=== PATIENT | female | born 1960 | race Caucasian/White ===

== ENCOUNTER 2016-10-30 19:53 | Emergency (ER) | payer SELFPAY ==
[~2016-10-30] VITALS: Ht 167.6 cm; Wt 68.2 kg
[2016-10-30] MEDS ORDERED: BECL8.7A7 IH (20:09)
[2016-10-30] MEDS ORDERED: DIAZ10 PO (20:09)
[2016-10-30] MEDS ORDERED: LORA2TAB2 PO (20:09)
[2016-10-30] MEDS ORDERED: ALBU8.5H8 IH (20:09)
[2016-10-30] MEDS ORDERED: ALBU8HFA IH (20:09)
[2016-10-30] MEDS ORDERED: DIVA500T35 PO (20:09)
[2016-10-30] MEDS ORDERED: QUET200T PO (20:09)
[2016-10-30] MEDS ORDERED: QUEtiapine FUMARATE 100 MG TABLET PO ONE (22:45)
[2016-10-30] MEDS ORDERED: ALBUTEROL SULFATE HFA 90 MCG/PUFF 8 GM INHALER IH ONE (22:45)
[2016-10-30] MEDS ORDERED: LORazepam 2 MG TABLET PO ONE (22:45)
[2016-10-30 22:56] VITALS: BP 130/85
== END 2016-10-30 22:59 | disposition home or self-care (01) ==
LOC: EMS 19:57
DX: F43.22 Adjustment disorder with anxiety (principal); J44.1 Chronic obstructive pulmonary disease with (acute) exacerbation; F32.9 Major depressive disorder, single episode, unspecified; J45.909 Unspecified asthma, uncomplicated; I10 Essential (primary) hypertension; F17.210 Nicotine dependence, cigarettes, uncomplicated; Z59.0 Homelessness; Z88.5 Allergy status to narcotic agent; Z88.6 Allergy status to analgesic agent
CPT/HCPCS: 94640; 99283; 99406; J3535

== ENCOUNTER 2016-11-03 16:05 | Emergency (ER) | payer MEDICAID ==
[~2016-11-03] VITALS: Ht 165.1 cm; Wt 63.6 kg
[~2016-11-03 16:05] MED LIST: ALBU8.5H8 IH; ALBU8HFA IH; BECL8.7A7 IH; DIAZ10 PO; DIVA500T35 PO; LORA2TAB2 PO; QUET200T PO
[2016-11-03 16:58] VITALS: BP 133/90
[2016-11-03] MEDS ORDERED: ALBUTEROL SULFATE HFA 90 MCG/PUFF 8 GM INHALER IH ONE (17:45)
== END 2016-11-03 18:07 | disposition home or self-care (01) ==
LOC: EMS 16:06
DX: J44.9 Chronic obstructive pulmonary disease, unspecified (principal); F41.9 Anxiety disorder, unspecified; I10 Essential (primary) hypertension; F17.210 Nicotine dependence, cigarettes, uncomplicated; Z88.8 Allergy status to other drugs, medicaments and biological substances; Z88.6 Allergy status to analgesic agent
CPT/HCPCS: 94640; 99283; 99406; J3535

== ENCOUNTER 2016-11-23 10:28 | Emergency (ER) | payer MEDICAID ==
[~2016-11-23] VITALS: Ht 162.6 cm; Wt 60.0 kg
[2016-11-23] MEDS ORDERED: MethylPREDNISolone SOD SUCC 125 MG/2 ML VIAL IM ONE (11:30)
[2016-11-23] MEDS ORDERED: ALBUTEROL SULFATE HFA 90 MCG/PUFF 8 GM INHALER IH ONE (12:00)
[2016-11-23 12:06] VITALS: BP 138/92
== END 2016-11-23 12:08 | disposition home or self-care (01) ==
LOC: EMS 10:30
DX: J45.901 Unspecified asthma with (acute) exacerbation (principal); J44.1 Chronic obstructive pulmonary disease with (acute) exacerbation; I10 Essential (primary) hypertension; F17.210 Nicotine dependence, cigarettes, uncomplicated; Z88.6 Allergy status to analgesic agent; Z88.5 Allergy status to narcotic agent
CPT/HCPCS: 94640; 96372; 99283; 99406; J2930; J3535

== ENCOUNTER 2017-01-21 17:45 | Inpatient (IN) | payer MEDICAID, OTHER ==
[~2017-01-21] VITALS: Ht 162.6 cm; Wt 61.2 kg
[2017-01-21 18:27] LABS: GLUCOSE,POINT OF CARE 103 MG/DL (70-110)
[2017-01-21 19:08] LABS: BASOPHILS % (AUTO) 0.8 % (0.0-2.0); HEMATOCRIT 42.6 % (36-46); HEMOGLOBIN 14.9 g/dL (12.0-16.0); LYMPHOCYTES # (AUTO) 2.2 K/uL (1.0-4.8); LYMPHOCYTES % (AUTO) 36.6 % (22.0-44.0); MEAN CORPUSCULAR HEMOGLOBIN 33.4 pg (26.0-34.0); MEAN CORPUSCULAR VOLUME 96 fL (80-100); MONOCYTES # (AUTO) 0.3 K/uL (0.1-1.0); MONOCYTES % (AUTO) 5.9 % (2.0-9.0); NEUTROPHILS # (AUTO) 2.4 K/uL (1.8-7.7); NEUTROPHILS % (AUTO) 41.4 % (40.0-70.0); PLATELET COUNT (AUTO) 297 K/uL (150-450); RED BLOOD CELL COUNT(AUTO) 4.46 MIL/uL (4.00-5.20); RED CELL DISTRIBUTION WIDTH 12.9 % (11.5-14.5); WHITE BLOOD COUNT (AUTO) 5.9 K/uL (4.5-11.0)
[2017-01-21 19:11] LABS: EOSINOPHILS % (AUTO) 15.3 % (1.0-6.0)
[2017-01-21 19:20] LABS: ANION GAP 9 mmol/L (8-16); CALCIUM, TOTAL 9.3 mg/dL (8.8-10.5); CARBON DIOXIDE 30 mmol/L (22-29); CHLORIDE 102 mmol/L (98-107); CREATININE 0.78 mg/dL (0.60-1.30); GLOMERULAR FILTR. RATE CALC > 60 mL/min (>60); POTASSIUM 3.9 mmol/L (3.5-5.1); SODIUM SERUM 141 mmol/L (136-145); UREA NITROGEN, BLOOD 8 mg/dL (7-18)
[2017-01-21 19:26] LABS: ALANINE AMINOTRANSFERASE 24 U/L (12-78); ALBUMIN 3.8 g/dL (3.4-5.0); ASPARTATE AMINOTRANSFERASE 21 U/L (15-37); BILIRUBIN,TOTAL 0.2 mg/dL (0.1-1.0); TOTAL PROTEIN, SERUM 7.2 g/dL (6.4-8.2)
[2017-01-21] MEDS ORDERED: ALBUTEROL SULFATE HFA 90 MCG/PUFF 8 GM INHALER IH ONE (20:15)
[2017-01-21] MEDS ORDERED: HALOPERIDOL 5 MG TABLET PO PRN (21:30)
[2017-01-21] MEDS ORDERED: CYANOCOBALAMIN 500 MCG TABLET PO ONE (21:30)
[2017-01-21] MEDS ORDERED: ZOLPIDEM TARTRATE 10 MG TABLET PO PRN (21:30)
[2017-01-21] MEDS ORDERED: ACETAMINOPHEN 500 MG TABLET PO ONE (22:00)
[2017-01-21] MEDS: LORazepam 2 MG TABLET PO PRN (22:10)
[2017-01-22] VITALS (11 sets, daily range): BP systolic 98–143; BP diastolic 62–99
[2017-01-22 07:49] LABS: CHOL/HDL RATIO 3.3 (3.9-5.7)
[2017-01-22] MEDS: FOLIC ACID 1 MG TABLET PO SCH (08:33)
[2017-01-22] MEDS: THIAMINE HCL 100 MG TABLET PO SCH ×2 (08:34→16:15)
[2017-01-22] MEDS: ALBUTEROL SULFATE HFA 90 MCG/PUFF 8 GM INHALER IH SCH ×3 (08:35→16:16)
[2017-01-22] MEDS: DIVALPROEX SODIUM 500 MG DR TABLET PO SCH ×2 (08:45→16:15)
[2017-01-22] MEDS: BECLOMETHASONE DIPR 80 MCG/PUFF 8.7 GM INHALER IH SCH ×2 (09:00→16:16)
[2017-01-22] MEDS: NICOTINE 14 MG/24 HOUR PATCH TD SCH (10:13)
[2017-01-22] MEDS ORDERED: ACETAMINOPHEN 325 MG TABLET PO PRN (12:15)
[2017-01-22] MEDS: LORazepam 2 MG TABLET PO PRN ×2 (12:56→16:58)
[2017-01-22] MEDS: QUEtiapine FUMARATE 200 MG TABLET PO SCH (20:29)
[2017-01-22] MEDS ORDERED: QUEtiapine FUMARATE 200 MG TABLET PO SCH (21:00)
[2017-01-23] VITALS: BP 112/69
[2017-01-23] MEDS: ALBUTEROL SULFATE HFA 90 MCG/PUFF 8 GM INHALER IH PRN ×2 (03:39→14:54)
[2017-01-23 04:00] VITALS: BP 116/71
[2017-01-23 08:00] VITALS: BP 100/65
[2017-01-23 08:22] LABS: BASOPHILS % (AUTO) 1.3 % (0.0-2.0); EOSINOPHILS % (AUTO) 10.6 % (1.0-6.0); HEMATOCRIT 42.4 % (36-46); HEMOGLOBIN 14.6 g/dL (12.0-16.0); LYMPHOCYTES # (AUTO) 1.8 K/uL (1.0-4.8); LYMPHOCYTES % (AUTO) 31.4 % (22.0-44.0); MEAN CORPUSCULAR HEMOGLOBIN 33.4 pg (26.0-34.0); MEAN CORPUSCULAR HGB CONC 34.4 G/dL (31.0-37.0); MEAN CORPUSCULAR VOLUME 97 fL (80-100); MONOCYTES # (AUTO) 0.5 K/uL (0.1-1.0); MONOCYTES % (AUTO) 7.9 % (2.0-9.0); NEUTROPHILS # (AUTO) 2.9 K/uL (1.8-7.7); NEUTROPHILS % (AUTO) 48.8 % (40.0-70.0); PLATELET COUNT (AUTO) 268 K/uL (150-450); RED BLOOD CELL COUNT(AUTO) 4.37 MIL/uL (4.00-5.20); RED CELL DISTRIBUTION WIDTH 12.7 % (11.5-14.5); WHITE BLOOD COUNT (AUTO) 5.9 K/uL (4.5-11.0)
[2017-01-23 08:26] LABS: HEMOGLOBIN A1C 5.6 % (4.5-6.2)
[2017-01-23 08:30] VITALS: BP 100/65
[2017-01-23 08:41] LABS: THYROID STIMULATING HORMONE 0.88 uIU/mL (0.36-3.74)
[2017-01-23] MEDS: BECLOMETHASONE DIPR 80 MCG/PUFF 8.7 GM INHALER IH SCH ×2 (08:41→16:17)
[2017-01-23] MEDS: THIAMINE HCL 100 MG TABLET PO SCH ×2 (08:42→16:18)
[2017-01-23] MEDS: DIVALPROEX SODIUM 500 MG DR TABLET PO SCH ×2 (08:42→16:18)
[2017-01-23] MEDS: ALBUTEROL SULFATE HFA 90 MCG/PUFF 8 GM INHALER IH SCH ×3 (08:42→17:15)
[2017-01-23] MEDS: NICOTINE 14 MG/24 HOUR PATCH TD SCH (08:42)
[2017-01-23] MEDS: FOLIC ACID 1 MG TABLET PO SCH (08:42)
[2017-01-23] MEDS: LORazepam 2 MG TABLET PO PRN ×2 (08:48→16:21)
[2017-01-23 08:54] LABS: ALANINE AMINOTRANSFERASE 22 U/L (12-78); ALBUMIN 3.4 g/dL (3.4-5.0); ANION GAP 8 mmol/L (8-16); ASPARTATE AMINOTRANSFERASE 18 U/L (15-37); BILIRUBIN,TOTAL 0.3 mg/dL (0.1-1.0); CALCIUM, TOTAL 8.8 mg/dL (8.8-10.5); CARBON DIOXIDE 28 mmol/L (22-29); CHLORIDE 101 mmol/L (98-107); CHOL/HDL RATIO 2.9 (3.9-5.7); CREATININE 0.79 mg/dL (0.60-1.30); GLOMERULAR FILTR. RATE CALC > 60 mL/min (>60); POTASSIUM 3.8 mmol/L (3.5-5.1); SODIUM SERUM 137 mmol/L (136-145); TOTAL PROTEIN, SERUM 6.9 g/dL (6.4-8.2); UREA NITROGEN, BLOOD 14 mg/dL (7-18)
[2017-01-23 16:33] VITALS: BP 140/91
[2017-01-23 18:27] VITALS: BP 105/64
[2017-01-23] MEDS: QUEtiapine FUMARATE 200 MG TABLET PO SCH (20:16)
[2017-01-24 05:30] VITALS: BP 124/73
[2017-01-24] MEDS ORDERED: PNEUMOCOCCAL VACCINE POLYVALENT 0.5 ML VIAL [PPSV23] IM ONE (06:00)
[2017-01-24] MEDS: ALBUTEROL SULFATE HFA 90 MCG/PUFF 8 GM INHALER IH PRN (07:10)
[2017-01-24 08:42] VITALS: BP 113/74
[2017-01-24] MEDS: FOLIC ACID 1 MG TABLET PO SCH (08:48)
[2017-01-24] MEDS: NICOTINE 14 MG/24 HOUR PATCH TD SCH (08:48)
[2017-01-24] MEDS: DIVALPROEX SODIUM 500 MG DR TABLET PO SCH (08:49)
[2017-01-24] MEDS: THIAMINE HCL 100 MG TABLET PO SCH (08:49)
[2017-01-24] MEDS: ALBUTEROL SULFATE HFA 90 MCG/PUFF 8 GM INHALER IH SCH ×2 (08:49→13:38)
[2017-01-24] MEDS: BECLOMETHASONE DIPR 80 MCG/PUFF 8.7 GM INHALER IH SCH (08:49)
[2017-01-24 09:37] VITALS: BP 113/74
[2017-01-24] MEDS ORDERED: ALBU8HFA4 IH (14:47)
== END 2017-01-24 15:45 | disposition home or self-care (01) | DRG 753 ==
LOC: EMS 17:47 → B3A 21:30
DX: F31.2 Bipolar disorder, current episode manic severe with psychotic features (principal); I10 Essential (primary) hypertension; J45.909 Unspecified asthma, uncomplicated; F10.229 Alcohol dependence with intoxication, unspecified; F41.9 Anxiety disorder, unspecified; F17.210 Nicotine dependence, cigarettes, uncomplicated; J44.9 Chronic obstructive pulmonary disease, unspecified; E78.5 Hyperlipidemia, unspecified; Z28.21 Immunization not carried out because of patient refusal; Z79.899 Other long term (current) drug therapy; Z98.51 Tubal ligation status; Z88.8 Allergy status to other drugs, medicaments and biological substances; Z87.01 Personal history of pneumonia (recurrent); Z71.41 Alcohol abuse counseling and surveillance of alcoholic
CPT/HCPCS: 82962; 83036; 84436; 84439; 84443; 99285; G0480; J3535

== ENCOUNTER 2017-03-07 13:10 | Emergency (ER) | payer MEDICAID ==
[~2017-03-07] VITALS: Ht 167.6 cm; Wt 63.6 kg
[~2017-03-07 13:10] MED LIST changes: -ALBU8.5H8 IH; -ALBU8HFA IH; +ALBU8HFA4 IH; -DIAZ10 PO; -LORA2TAB2 PO
[2017-03-07 13:17] VITALS: BP 154/92
== END 2017-03-07 14:59 | disposition left against medical advice (07) ==
LOC: EMS 13:11
DX: R07.9 Chest pain, unspecified (principal); I10 Essential (primary) hypertension; F17.210 Nicotine dependence, cigarettes, uncomplicated; Z53.21 Procedure and treatment not carried out due to patient leaving prior to being seen by health care provider
CPT/HCPCS: 93005

== ENCOUNTER 2017-05-02 12:52 | Emergency (ER) | payer MEDICAID ==
[~2017-05-02] VITALS: Ht 165.1 cm; Wt 59.1 kg
[~2017-05-02 12:52] MED LIST changes: -DIVA500T35 PO; -QUET200T PO
[2017-05-02 13:01] VITALS: BP 150/80
== END 2017-05-02 14:54 | disposition left against medical advice (07) ==
LOC: EMS 12:54
DX: Z53.21 Procedure and treatment not carried out due to patient leaving prior to being seen by health care provider (principal)

== ENCOUNTER 2021-05-13 12:52 | Emergency (ER) | payer MEDICAID ==
[~2021-05-13] VITALS: Ht 165.1 cm; Wt 67.7 kg
[2021-05-13 13:12] LABS: BASOPHILS % (AUTO) 0.9 % (0.0-2.0); EOSINOPHILS % (AUTO) 4.5 % (1.0-6.0); HEMATOCRIT 38.7 % (36-46); HEMOGLOBIN 13.2 g/dL (12.0-16.0); LYMPHOCYTES # (AUTO) 1.7 K/uL (1.0-4.8); LYMPHOCYTES % (AUTO) 20.5 % (22.0-44.0); MEAN CORPUSCULAR HEMOGLOBIN 31.4 pg (26.0-34.0); MEAN CORPUSCULAR HGB CONC 34.1 G/dL (31.0-37.0); MEAN CORPUSCULAR VOLUME 92 fL (80-100); MONOCYTES # (AUTO) 0.6 K/uL (0.1-1.0); MONOCYTES % (AUTO) 7.5 % (2.0-9.0); NEUTROPHILS # (AUTO) 5.5 K/uL (1.8-7.7); NEUTROPHILS % (AUTO) 66.6 % (40.0-70.0); PLATELET COUNT (AUTO) 293 K/uL (150-450); RED BLOOD CELL COUNT(AUTO) 4.21 MIL/uL (4.00-5.20); RED CELL DISTRIBUTION WIDTH 12.7 % (11.5-14.5)
[2021-05-13 13:23] LABS: CALCIUM, TOTAL 9.3 mg/dL (8.8-10.5); CREATININE 0.96 mg/dL (0.60-1.30); POTASSIUM 4.4 mmol/L (3.5-5.1)
[2021-05-13 13:29] LABS: ALBUMIN 3.8 g/dL (3.4-5.0); BILIRUBIN,TOTAL 0.2 mg/dL (0.1-1.0)
[2021-05-13 14:00] VITALS: BP 124/87
== END 2021-05-13 14:25 | disposition left against medical advice (07) ==
LOC: EMS 12:52
DX: R07.9 Chest pain, unspecified (principal); R06.02 Shortness of breath; R22.1 Localized swelling, mass and lump, neck; F41.9 Anxiety disorder, unspecified; J45.909 Unspecified asthma, uncomplicated; F31.9 Bipolar disorder, unspecified; I10 Essential (primary) hypertension; F17.210 Nicotine dependence, cigarettes, uncomplicated; Z88.6 Allergy status to analgesic agent; Z88.5 Allergy status to narcotic agent
CPT/HCPCS: 80053; 84484; 85025; 93005; 99284